=== PATIENT | female | born 1990 ===

== ENCOUNTER 2018-08-11 04:15 | Inpatient (IN) | payer OTHER, SELFPAY ==
[~2018-08-11 04:15] MED LIST: PENICILLIN 5 MU in NA CHLORIDE 0.9% 100 ML IV ONE; Ringers Lactate 1,000 ML IV PRN
[2018-08-11 04:51] VITALS: BMI 29.0
[2018-08-11] MEDS ORDERED: Ringers Lactate 1,000 ML IV SCH (05:00)
[2018-08-11] MEDS ORDERED: OXYTOCIN/LR 20 UNIT/1,000 ML BAG IV SCH ×2 (05:00→19:00)
[2018-08-11] MEDS ORDERED: PENICILLIN G POT 5 MU/100 ML BAG IV ONE (05:06)
[2018-08-11 05:15] LABS: RPR Titer ND
[2018-08-11 05:18] LABS: Absolute Monocytes 0.8 K/uL (0.1-1.3); Basophils % 0.2 % (0-1.3); Eosinophils % 0.4 % (0-4.4); Hematocrit 39.6 % (36.0-45.0); Lymphocytes % 20.3 % (15.3-44.8); MPV 9.2 fL (7.6-11.3); Monocytes % 5.1 % (3.3-12.3); RBC Red Blood Cell Count 4.73 M/uL (3.86-4.86); Urine Appearance CLOUDY; Urine Bilirubin NEGATIVE (NEG); Urine Blood 3+ (NEG); Urine Color YELLOW; Urine Glucose NEGATIVE (NEG); Urine Microscopic Reflex ORDER UMIC; Urine Protein NEGATIVE (NEG); Urine Urobilinogen 0.2 mg/dL (0.2-1.0)
[2018-08-11 05:39] LABS: Urine Bacteria >50 /HPF (<20); Urine Culture Reflex Order NOT NEEDED; Urine RBC <5 /HPF (NONE SEEN)
--- NOTE | 2018-08-11 08:08 | PREOPHP ---
Date of Admission: 08/11/2018 A 28-year-old, primigravida, 39 weeks. Rh positive, immune to Rubella. Positive beta strep screen. The patient is receiving penicillin prophylaxis. Full labor talk given. She is 1.5 cm, 60% effaced , vertex, well applied. Rupture of membranes, clear fluid. FHT is normal, reactive. Ultrasound dem onstrated the baby has a nuchal cord. We have discussed this at length, and she knows this is a fair ly common occurrence, but as long as the baby has no problems, should not represent any difficulty. We will monitor the baby of course during the day. There is also not a central location of the inser tion of the umbilical cord in the placenta, but she says this is not a loss of previa. We have discu ssed that at length also. Anticipate delivery sometime later today. Full labor talk given. YIN/NATALY Voice ID: [id number]
[2018-08-11] MEDS ORDERED: PENICILLIN 2.5 MU in NA CHLORIDE 0.9% 100 ML IV SCH (09:00)
--- NOTE | 2018-08-11 12:26 | PN ---
The patient is now 3 cm, 80% effaced, vertex, -1 station, well applied. FHTs normal, reactive. She is on 16 milliunits at this point, nayely every 1 to 3 minutes. Anticipate more rapid progress once she reaches 5 cm. The patient is in excellent control and using Lamaze breathing techniques at this point. YIN/NATALY Voice ID: [id number] Report ID: [id number]
[2018-08-11] MEDS ORDERED: PROMETHAZINE 25 MG/ML VIAL IM PRN (13:36)
[2018-08-11] MEDS ORDERED: BUTORPHANOL 1 MG/ML INJ IV PRN (13:36)
[2018-08-11] MEDS ORDERED: MEPERIDINE HCL 25 MG/0.5 ML IV PRN (13:36)
[2018-08-11] MEDS ORDERED: METHYLERGONOVINE 0.2MG/ML AMP IM PRN (13:36)
[2018-08-11] MEDS ORDERED: ROPIVACAINE HCL 100 ML IV PRN (14:24)
[2018-08-11] MEDS ORDERED: FENTANYL CITR 100 MCG/2 ML IV ONE (14:27)
[2018-08-11] MEDS ORDERED: ROPIVACAINE HCL 0.2% 20ML AMP IV ONE (14:27)
--- NOTE | 2018-08-11 17:32 | PN ---
The patient is now 3.5 cm, 90% effaced. She is on 18 milliunits. FHTs normal, reactive. Fluid is s till nice and clear. I think, the patient should start making more rapid progress once she gets to 4 . YIN/NATALY Voice ID: [id number] Report ID: [id number]
--- NOTE | 2018-08-11 17:38 | PN ---
The patient is now 7.5 to 8 cm, 100% effaced, 0 station. FHTs normal, reactive. She has had her epi dural placed by Dr. Mark and she is feeling quite well. Her right leg is a little bit difficult to c ontrol when the time comes for her to push if it is not effective, we will turn the epidural from its standard 10 down to 8 if necessary, anticipate fairly rapid progress from this point forward. Full discussion with patient and . YIN/NATALY Voice ID: [id number] Report ID: [id number]
[2018-08-11] MEDS ORDERED: METHYLERGONOVINE 0.2MG/ML AMP IM ONE (18:02)
[2018-08-11] MEDS ORDERED: LIDOCAINE 1% 20 ML MDV ONE (18:11)
[2018-08-11] MEDS ORDERED: DIPHENHYDRAMINE 25 MG TAB/CAP PO PRN (18:25)
[2018-08-11] MEDS ORDERED: DOCUSATE NA/SENNA CONC 1 TAB PO PRN (18:25)
[2018-08-11] MEDS ORDERED: Oxycodone HCl/Acetaminophen 1 TAB TAB PO PRN (18:25)
[2018-08-11] MEDS ORDERED: ACETAMINOPHEN 500 MG TAB PO PRN (18:25)
[2018-08-11] MEDS ORDERED: BISACODYL 10 MG RECTAL SUPP RECT PRN (18:25)
[2018-08-11] MEDS ORDERED: IBUPROFEN 200 MG TAB PO PRN (18:25)
[2018-08-11] MEDS ORDERED: OXYTOCIN/LR 20 UNIT/1,000 ML BAG IV ONE (18:54)
--- NOTE | 2018-08-11 19:23 | PN ---
The patient is now complete, pushing. She is a very good pusher. I do not think it would take too m uch longer. Baby still looks excellent. No signs of cord compression. If she continues to push as she is doing now, we should have a delivery within next 30 minutes or less. YIN/NATALY Voice ID: [id number] Report ID: [id number]
[2018-08-11 23:23] LABS: RPR (Rapid Plasma Reagin) NON-REACT (NON-REACT)
--- NOTE | 2018-08-12 04:33 | OP ---
Surgeon: Fish Mosher MD A 28-year-old, primigravida, 39 weeks, 1.5 cm, 15% to 60% effaced, vertex, well applied on admission. Full admission discussion about induction. Rupture of membranes at 1.5 to 2 cm, clear fluid. The p atient used Lamaze breathing techniques until she reached approximately 5 cm, at which time requested and received epidural anesthesia which gave excellent effect during remainder of labor and delivery. Second stage of approximately 1 hour to 1 hour and 10 minutes. Spontaneous vaginal delivery of an estimated 6 pound plus female , Apgars 9 and 9. Midline second-degree laceration simulating ep isiotomy repair with 2-0 chromic. Schultze delivery of the placenta, which was inspected and noted t o have eccentric location of the insertion of the cord which was known from ultrasound but not a loss of previa type situation and not even velamentous insertion. Estimated blood loss 400 cc. Penicill in prophylaxis x4 as patient was beta strep positive. She is Rh positive, immune to Rubella. Final Diagnoses: 1.Term intrauterine 39 weeks. 2.Vaginal delivery. 3.Epidural anesthesia. 4.Eccentric insertion of cord. 5.Penicillin prophylaxis x4. YIN/KATIEL Voice ID: [id number] Report ID: [id number]
[2018-08-12] MEDS: Oxycodone HCl/Acetaminophen 1 TAB TAB PO PRN ×2 (04:44→10:26)
[2018-08-12 22:48] VITALS: BP 102/56; TEMP 98
--- NOTE | 2018-08-13 04:55 | DS ---
Date of Discharge: 08/12/2018 Hospital Course: A 28-year-old, primigravida, 39 weeks. Rh positive, immune to Rubella. Positive b eta strep screen. Delivered of a 6-pound, 9- ounce female after about an hour and 10 minutes second stage. Apgars 9 and 9. Loose shoulder cord. Eccentric insertion of the umbilical cord, but not dedra amentous or vasa previa. Second-degree midline laceration repaired with 2-0 chromic. Padmaja venegas alexi of the placenta. 400 cc blood loss estimate. Penicillin prophylaxis x4. , afebrile, ambulating, voiding. Lochia is normal. No post epidural problems. She will be dismissed either lat er this evening or tomorrow morning. To report back to my office in 6 weeks for followup. To report any temperature elevation of 100 degrees or greater, severe pain, heavy bleeding, or any other type of abnormalities. Dismissed with tramadol for analgesia, although she may elect to take Motrin inste ad. She has had her Tdap immunization as well as her . Full dismissal instructions given. Final Diagnoses: Term intrauterine , 39 weeks. Vaginal delivery. Epidural anesthesia. Pe nicillin prophylaxis. YIN/KATIEL Voice ID: [id number] Report ID: [id number]
[2018-08-13 21:29] LABS: HBsAG Nonreactive (Nonreactive)
== END 2018-08-12 22:25 | disposition home or self-care (01) | DRG 807 ==
LOC: 2ND-WC 04:15
PROVIDERS: ADMIT Specialist; ATTEND Specialist
PROC: 10E0XZZ Delivery of Products of Conception, External Approach (ICD-10-PCS; principal; 2018-08-11)
PROC: 0KQM0ZZ Repair Perineum Muscle, Open Approach (ICD-10-PCS; 2018-08-11)
PROC: 10907ZC Drainage of Amniotic Fluid, Therapeutic from Products of Conception, Via Natural or Artificial Opening (ICD-10-PCS; 2018-08-11)
DX: O99.824 Streptococcus B carrier state complicating childbirth (principal); Z37.0 Single live birth; O70.1 Second degree perineal laceration during delivery; O69.81X0 Labor and delivery complicated by cord around neck, without compression, not applicable or unspecified; Z3A.39 39 weeks gestation of pregnancy
CPT/HCPCS: 36415; 81003; 81015; 85025; 86592; 86901; 87340; J2175; J2210; J2590; J2795; J3010